=== PATIENT | female | born 1945 | race Caucasian/White ===

== ENCOUNTER 2021-03-17 14:29 | Observation (INO) | payer OTHER ==
[2021-03-17 14:49] VITALS: BMI 20.5
[2021-03-17] MEDS ORDERED: ACETAMINOPHEN 1000 MG/100 ML VIAL IVPB ONE (15:37)
[2021-03-17] MEDS ORDERED: ACETAMINOPHEN INJECTION 100 ML IVPB ONE (16:15)
[2021-03-17] MEDS ORDERED: METHOCARBAMOL 500 MG TABLET PO ONE (16:23)
[2021-03-17] MEDS ORDERED: KETOROLAC TROMETHAMINE 30 MG/1 ML VIAL IVPUSH ONE (16:23)
[2021-03-17] MEDS ORDERED: LIDOCAINE 5% TOPICAL PATCH TP ONE (16:25)
[2021-03-17 16:55] LABS: EOS % 0.9 % (0-4.5); HEMATOCRIT 39.4 % (32.4-45.2); HEMOGLOBIN 13.7 GM/dL (10.7-15.3); LYMPH % 20.5 % (8-40); MCH 31.9 pg (25.7-33.7); MCHC 34.8 g/dl (32.0-36.0); MEAN CELL VOLUME 91.6 fl (80-96); MEAN PLT VOLUME 7.6 fl (7.5-11.1); MONO % 9.2 % (3.8-10.2); NEUT % 68.4 % (42.8-82.8); PLATELET COUNT 302 10^3/uL (134-434); RDW 12.6 % (11.6-15.6); WHITE BLOOD COUNT 6.1 K/mm3 (4.0-10.0)
[2021-03-17] MEDS ORDERED: METHOCARBAMOL 500 MG TABLET ONE (16:57)
[2021-03-17] MEDS ORDERED: LIDOCAINE 5% TOPICAL PATCH ONE (16:57)
[2021-03-17] MEDS ORDERED: KETOROLAC TROMETHAMINE 30 MG/1 ML VIAL ONE (16:57)
[2021-03-17 17:03] LABS: INR 1.02 (0.83-1.09); PROTHROMBIN TIME (PATIENT) 11.9 SEC (9.7-13.0)
[2021-03-17 17:06] LABS: ACTIVATED PTT 31.6 SECONDS (25.2-36.5)
[2021-03-17 17:16] LABS: ALBUMIN 3.6 g/dl (3.4-5.0); BLOOD UREA NITROGEN 13.9 mg/dL (7-18); CALCIUM 9.3 mg/dL (8.5-10.1)
[2021-03-17 17:20] LABS: CREATININE 0.7 mg/dL (0.55-1.3)
[2021-03-17 17:21] LABS: BILIRUBIN,TOTAL 0.5 mg/dL (0.2-1); TOT PROT 7.1 g/dl (6.4-8.2)
[2021-03-17] MEDS ORDERED: morphine CARPU-JECT 2 MG/1 ML DISP.SYRIN IVPUSH ONE (18:57)
[2021-03-17] MEDS ORDERED: morphine SULFATE 4 MG/ML VIAL ONE (19:24)
[2021-03-17] MEDS ORDERED: ACETAMINOPHEN 325 MG TABLET (FP) PO PRN (20:20)
[2021-03-17] MEDS ORDERED: ACETAMINOPHEN 1000 MG/100 ML VIAL IVPB PRN (22:03)
[2021-03-18] MEDS ORDERED: LIDOCAINE PATCH REMOVAL MC SCH ×2 (05:00→22:00)
[2021-03-18] MEDS ORDERED: morphine SULFATE 4 MG/ML VIAL IM ONE (05:05)
[2021-03-18] MEDS ORDERED: morphine SULFATE 4 MG/ML VIAL IVPUSH ONE (05:09)
[2021-03-18] MEDS ORDERED: BACLOFEN 10 MG TABLET (FP) PO ONE (06:18)
[2021-03-18] MEDS ORDERED: amLODIPine BESYLATE 2.5 MG TABLET (FP) PO SCH (07:00)
[2021-03-18] MEDS ORDERED: LOSARTAN POTASSIUM 25 MG TABLET PO SCH (07:00)
[2021-03-18] MEDS ORDERED: PATIENT'S OWN MEDICATION (NON-FORMULARY) (Amlodipine Bes/Olmesartan Med [Amlodipine-Olmesa PO SCH ×2 (07:00→10:00)
[2021-03-18 08:11] LABS: HEMATOCRIT 35.2 % (32.4-45.2); HEMOGLOBIN 12.4 GM/dL (10.7-15.3); MCH 32.3 pg (25.7-33.7); MCHC 35.3 g/dl (32.0-36.0); MEAN CELL VOLUME 91.5 fl (80-96); MEAN PLT VOLUME 7.6 fl (7.5-11.1); PLATELET COUNT 275 10^3/uL (134-434); RBC 3.84 M/mm3 (3.60-5.2); RDW 12.8 % (11.6-15.6)
[2021-03-18 08:26] LABS: ALBUMIN 3.1 g/dl (3.4-5.0); BLOOD UREA NITROGEN 16.5 mg/dL (7-18)
[2021-03-18 08:28] LABS: CREATININE 0.7 mg/dL (0.55-1.3)
[2021-03-18 08:29] LABS: PHOSPHOROUS 3.7 mg/dL (2.5-4.9)
[2021-03-18 08:30] LABS: BILIRUBIN,TOTAL 0.5 mg/dL (0.2-1); TOT PROT 6.1 g/dl (6.4-8.2)
[2021-03-18 08:38] LABS: MAGNESIUM 2.1 mg/dL (1.8-2.4)
[2021-03-18] MEDS ORDERED: LORATADINE 10 MG TABLET PO SCH (10:00)
[2021-03-18] MEDS ORDERED: LIDOCAINE 5% TOPICAL PATCH TP SCH (10:00)
[2021-03-18] MEDS ORDERED: ENOXAPARIN NA (PORCINE) 40 MG/0.4 ML DISP.SYRIN SQ SCH (10:00)
[2021-03-18] MEDS ORDERED: FAMOTIDINE 20 MG TABLET PO SCH (10:00)
[2021-03-18] MEDS ORDERED: BACLOFEN 10 MG TABLET (FP) PO PRN (12:19)
[2021-03-18 13:45] VITALS: PULSE 73
[2021-03-18 17:55] VITALS: BP 147/76; TEMP 97.4
[2021-03-18] MEDS ORDERED: MELATONIN 1 MG TABLET PO SCH (22:00)
== END 2021-03-18 18:36 | disposition home or self-care (01) ==
LOC: JER 14:29 → JERBED 18:29 → OBSVTOIN 19:35 → INTOOBSV 19:35 → J5S 03-18 02:31
PROVIDERS: ADMIT Internal Medicine; ATTEND Internal Medicine
PROC: 3E033NZ Introduction of Analgesics, Hypnotics, Sedatives into Peripheral Vein, Percutaneous Approach (ICD-10-PCS; principal; 2021-03-17)
PROC: 3E023GC Introduction of Other Therapeutic Substance into Muscle, Percutaneous Approach (ICD-10-PCS; 2021-03-17)
PROC: 3E033GC Introduction of Other Therapeutic Substance into Peripheral Vein, Percutaneous Approach (ICD-10-PCS; 2021-03-17)
PROC: 3E0333Z Introduction of Anti-inflammatory into Peripheral Vein, Percutaneous Approach (ICD-10-PCS; 2021-03-17)
DX: M51.24 Other intervertebral disc displacement, thoracic region (principal); M19.90 Unspecified osteoarthritis, unspecified site; G12.21 Amyotrophic lateral sclerosis; R26.2 Difficulty in walking, not elsewhere classified; Z99.89 Dependence on other enabling machines and devices; Z88.8 Allergy status to other drugs, medicaments and biological substances; Z91.041 Radiographic dye allergy status; J30.2 Other seasonal allergic rhinitis; F41.8 Other specified anxiety disorders; K21.9 Gastro-esophageal reflux disease without esophagitis; I10 Essential (primary) hypertension; M47.9 Spondylosis, unspecified; Z96.651 Presence of right artificial knee joint
CPT/HCPCS: 36415; 72131-TC; 73523-TC-FY; 80053; 83735; 84100; 85025; 85027; 85610; 85730; 86850; 86900; 86901; 93005; 93010; 96372; 96374; 96375; 96376; 99285-25; C9803; G0378; J0131; J0475; U0003; U0005